=== PATIENT | male | born 1980 | race Caucasian/White ===

== ENCOUNTER 2017-07-16 21:37 | Emergency (ER) | payer BC, OTHER ==
[2017-07-16 21:42] VITALS: BP 134/100; PULSE 89; TEMP 97.3; BMI 33.2
--- NOTE | 2017-07-16 21:52 | PDOC ---
History of Present Illness - History of Present Illness Initial Comments: 07/16/17 21:57 The patient is a year old male, with no significant past medical history, who presents to the emergency department with pain to his right lateral foot/ankle. 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 He reports experiencing pain immediately, but reportedly has been ambulatory without much pain exacerbation since. He denies swelling. He denies chest pain, shortness of breath, headache and dizziness. He denies fever, chills, nausea, vomit, diarrhea and constipation. He denies dysuria, frequency, urgency and hematuria. Adult PAST MEDICAL HISTORY: no significant history PAST SURGICAL HISTORY: no significant history FAMILY HISTORY: no pertinent history SOCIAL HISTORY: Pt lives with family and is employed. MEDICATIONS: reviewed ALLERGIES: As per nursing notes Adult ROS General: No fevers or chills, no weakness, no weight loss HEENT: No change in vision. No sore throat,. No ear pain CardioVascular: No chest pain or shortness of breath Respiratory:No cough, or wheezing. Gastrointestinal: no nausea, vomiting, diarrhea or constipation, No rectal bleeding Genitourinary: No dysuria, hematuria, or frequency Musculoskeletal: (+) right ankle pain. No muscle pain or swelling Neurologic: No headache, vertigo, dizziness or loss of consciousness Psychiatric: nor depression Skin: No rashes or easy bruising Endocrine: no increased thirst or abnormal weight change Allergic: no skin or latex allergy All other systems reviewed and normal Physical Exam GENERAL: The patient is awake, alert, and fully oriented, in no acute distress. HEAD: Normal with no signs of trauma. EYES: Pupils equal, round and reactive to light, extraocular movements intact, sclera anicteric, conjunctiva clear. EXTREMITIES: (+) RLE: No bony tenderness or deformities, Mild tenderness of soft tissues just over the right anterior talofibular ligament. Normal range of motion, no edema, no ecchymosis. NEUROLOGICAL: Normal speech, normal gait. PSYCH: Normal mood, normal affect. SKIN: Warm, Dry, normal turgor, no rashes or lesions noted. <Joslyn Redd - Last Filed: 07/16/17 21:57> - General History Source: Patient Exam Limitations: No Limitations - History of Present Illness Initial Comments: A portion of this note was documented by scribe services under my direction. I have reviewed the details of the note, within reason, and agree with the documentation. The case summary and management plan written by me. 07/16/17 22:12 Assessment and plan: This is a 37-year-old male who comes in complaining of right ankle pain. 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 Patient on exam had no bony tenderness but there was tenderness of the anterior talofibular ligament. Patient given Andre wrap and anti-inflammatories. Patient given a note for no work tomorrow and discharged home. <Gallo Archer I - Last Filed: 07/16/17 22:13> - General Chief Complaint: Injury Stated Complaint: R ANKLE PAIN Time Seen by Provider: 07/16/17 21:41 Past History <Joslyn Redd - Last Filed: 07/16/17 21:57> - Past Medical History COPD: No - Suicide/Smoking/Psychosocial Hx Smoking Status: No Smoking History: Never smoked Have you smoked in the past 12 months: No Number of Cigarettes Smoked Daily: 0 Information on smoking cessation initiated: No Hx Alcohol Use: No Drug/Substance Use Hx: No Substance Use Type: None <Gallo Archer I - Last Filed: 07/16/17 22:13> - Past Medical History Allergies/Adverse Reactions: Allergies Allergy/AdvReac Type Severity Reaction Status Date / Time No Known Allergies Allergy Verified 11/30/15 10:13 Home Medications: Ambulatory Orders NK [No Known Home Medication] 07/16/17 *Physical Exam - Vital Signs Last Vital Signs Temp Pulse Resp BP Pulse Ox 97.3 F L 89 14 134/100 100 07/16/17 21:40 07/16/17 21:40 07/16/17 21:40 07/16/17 21:40 07/16/17 21:40 <Joslyn Redd - Last Filed: 07/16/17 21:57> - Vital Signs Last Vital Signs Temp Pulse Resp BP Pulse Ox 97.3 F L 89 14 134/100 100 07/16/17 21:40 07/16/17 21:40 07/16/17 21:40 07/16/17 21:40 07/16/17 21:40 <Gallo Archer I - Last Filed: 07/16/17 22:13> ED Treatment Course - Medications Given in the ED: ED Medications Discontinued Medications Generic Name Dose Route Start Last Admin Trade Name Nnaci PRMelo Reason Stop Dose Admin Ibuprofen 600 mg 07/16/17 21:53 07/16/17 21:54 Motrin - PO 07/16/17 21:54 600 mg ONCE ONE Administration <Joslyn Redd - Last Filed: 07/16/17 21:57> *DC/Admit/Observation/Transfer - Attestations Scribe Attestion: 07/16/17 21:58 Documentation prepared by Joslyn Redd, acting as senior medical writer for Gallo Archer MD <Joslyn Redd - Last Filed: 07/16/17 21:57> - Discharge Dispostion Admit: No <Gallo Archer I - Last Filed: 07/16/17 22:13> Diagnosis at time of Disposition: Right ankle sprain Qualifiers: Encounter type: initial encounter Involved ligament of ankle: anterior talofibular ligament Qualified Code(s): S93.491A - Sprain of other ligament of right ankle, initial encounter - Discharge Dispostion Disposition: HOME Condition at time of disposition: Good - Referrals Referrals: Jaylen Liu MD [Primary Care Provider] - - Patient Instructions Additional Instructions: Wear the Andre wrap for the next 3-4 days for additional support especially when you're working. Tylenol or Motrin as needed for the pain take as directed on the bottle. Return to the emergency department immediately with ANY new, persistent or worsening symptoms. Continue any medications as previously prescribed by your physician. You should follow up with your primary doctor as soon as possible regarding today's emergency department visit. . Please make sure your doctor reviews the results of your emergency evaluation. Thank you for coming to the Emergency Department today for your care. It was a pleasure to see you today. Please note that your evaluation is INCOMPLETE until you follow-up with your doctor. - Post Discharge Activity Forms/Work/School Notes: Back to Work
[2017-07-16] MEDS ORDERED: IBUPROFEN 600 MG TABLET (FP) PO ONE ×2 (21:53→21:55)
== END 2017-07-16 21:59 | disposition home or self-care (01) ==
LOC: FER 21:37
DX: S93.491A Sprain of other ligament of right ankle, initial encounter (principal); V89.9XXA Person injured in unspecified vehicle accident, initial encounter; Y93.89 Activity, other specified; Y92.9 Unspecified place or not applicable; Y99.0 Civilian activity done for income or pay
CPT/HCPCS: 99282-25

== ENCOUNTER 2017-10-26 03:13 | Emergency (ER) | payer BC, OTHER ==
[2017-10-26 03:26] VITALS: BP 137/83; PULSE 92; TEMP 98.6; BMI 33.9
--- NOTE | 2017-10-28 10:39 | EKG ---
Test Reason : Blood Pressure : / mmHG Vent. Rate : 078 BPM Atrial Rate : 078 BPM P-R Int : 150 ms QRS Dur : 098 ms QT Int : 406 ms P-R-T Axes : 052 073 048 degrees QTc Int : 462 ms NORMAL SINUS RHYTHM SEPTAL INFARCT , AGE UNDETERMINED ABNORMAL ECG WHEN COMPARED WITH ECG OF 26-OCT-2017 03:21, NO SIGNIFICANT CHANGE WAS FOUND Confirmed by MD Gilles, Dino ([id number]) on 10/28/2017 10:39:28 AM Referred By: MD GRIFFITH Confirmed By:Dino Campoverde MD
== END 2017-10-26 07:36 | disposition left against medical advice (07) ==
LOC: JER 03:13
DX: Z53.21 Procedure and treatment not carried out due to patient leaving prior to being seen by health care provider (principal)
CPT/HCPCS: 93005; 93010; 99281-25

== ENCOUNTER 2017-10-26 06:05 | Emergency (ER) | payer BC ==
[2017-10-26 06:24] VITALS: TEMP 98.5; BMI 33.9
--- NOTE | 2017-10-26 06:37 | PDOC ---
History of Present Illness - General History Source: Patient Exam Limitations: No Limitations - General Chief Complaint: Chest Pain Stated Complaint: CHEST PAIN - History of Present Illness Initial Comments: 10/26/17 06:38 This is a 37-year-old male who comes in complaining of chest pain. Patient denies any history of hypertension high cholesterol, diabetes, coronary artery disease. Patient denies any family history of coronary artery disease. Patient currently woke up approximately 1:30 this morning with some chest discomfort went to another hospital sat there for 3 hours was not seen and so came here for evaluation. Patient said that symptoms lasted approximately one hour. There was no associated shortness of breath, diaphoresis, nausea. There was some radiation down the outside of his left arm. PAST MEDICAL HISTORY: no significant history PAST SURGICAL HISTORY: no significant history FAMILY HISTORY: no pertinant history SOCIAL HISTORY: Pt lives with family and is employed. MEDICATIONS: reviewed ALLERGIES: As per nursing notes Review of Systems General: No fevers or chills, no weakness, no weight loss HEENT: No change in vision. No sore throat,. No ear pain CardioVascular: + chest pain, no shortness of breath Respiratory:No cough, or wheezing. Gastrointestinal: no nausea, vomitting, diarrhea or constipation, No rectal bleeding Genitourinary: No dysuria, hematuria, or frequency Musculoskeletal: No joint or muscle pain or swelling Neurologic: No headache, vertigo, dizziness or loss of consciousness Psychiatric: nor depression Skin: No rashes or easy bruising Endocrine: no increased thirst or abnormal weight change Allergic: no skin or latex allergy All other systems reviewed and normal Exam: General: Well-nourished well-developed individual, no acute distress HEENT: Throat: Normal, tonsils normal, no erythema or exudate Neck: Supple, no meningeal signs, no lymphadenopathy Eyes::Pupils equal reactive and round, extraocular motion intact Chest: Nontender to palpation Cardiac: S1-S2 normal, regular rate and rhythm, no murmurs rubs or gallops Respiratory: Lungs clear to auscultation bilateral Abdomen: Soft, nondistended, normal bowel sounds, nontender to palpation diffusely Extremities: Warm, dry, no cyanosis, clubbing, or edema Skin: No rashes Neuro: Alert and oriented x3, CN II - XII intact, nonfocal exam with normal strength, normal sensation, normal reflexes, normal gait, Psych: Normal mood and affect Assessment and plan: This is a 37-year-old male who comes in complaining of having woken up with a discomfort in his chest with some radiation to his left arm. Patient has no risk factors and his heart score is 0. Patient's cardiogram was normal with no acute ST-T wave changes Patient's discomfort and resolved by the time he got to the emergency department. Cardiac enzymes were sent (Gallo Archer I) Past History - Past Medical History COPD: No Other medical history: CHRONIC BACK/ARM PAIN - Suicide/Smoking/Psychosocial Hx Smoking Status: No Smoking History: Never smoked Have you smoked in the past 12 months: No Number of Cigarettes Smoked Daily: 0 Information on smoking cessation initiated: Yes Hx Alcohol Use: No Drug/Substance Use Hx: No Substance Use Type: None - Past Medical History Allergies/Adverse Reactions: Allergies Allergy/AdvReac Type Severity Reaction Status Date / Time No Known Allergies Allergy Verified 10/26/17 03:26 Home Medications: Ambulatory Orders Oxycodone HCl [Oxycodone HCl ER] 30 mg PO BID PRN 10/26/17 - Vital Signs Last Vital Signs Temp Pulse Resp BP Pulse Ox 98.5 F 80 16 148/99 100 10/26/17 06:19 10/26/17 06:19 10/26/17 06:19 10/26/17 06:19 10/26/17 06:19 Heart Score/ECG Review - History History: Slightly suspicious - Electrocardiogram EKG: Normal - Age Age: </= 45 - Risk Factors Based on the list above the patient has:: No risk factors known - Troponin Troponin: </= normal limit - Score Heart Score - Total: 0 - ADDITIONAL ORDERS Additional order review: Laboratory Results 10/26/17 10/26/17 06:43 06:43 Creatine Kinase 99 Troponin I < 0.03 Medical Decision Making - Medical Decision Making 10/26/17 08:47 pt sigend out to me, woek up with chest tightness at around 1:30 associated wit somet ingling in his L arm. pain resolved after a few minutes. he has no risk factors. 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 pt currently asymptomatic ekg is wnl trop neg (Angie,Myron) *DC/Admit/Observation/Transfer - Discharge Dispostion Admit: No Diagnosis at time of Disposition: Atypical chest pain - Discharge Dispostion Disposition: HOME Condition at time of disposition: Stable - Referrals Referrals: Jaylen Liu MD [Primary Care Provider] - - Patient Instructions Additional Instructions: Return to the emergency department immediately with ANY new, persistent or worsening symptoms. Continue any medications as previously prescribed by your physician. You should follow up with your primary doctor as soon as possible regarding today's emergency department visit. . Please make sure your doctor reviews the results of your emergency evaluation. Thank you for coming to the Emergency Department today for your care. It was a pleasure to see you today. Please note that your evaluation is INCOMPLETE until you follow-up with your doctor. - Post Discharge Activity Forms/Work/School Notes: Back to Work
[2017-10-26 09:26] VITALS: BP 136/90; PULSE 78
--- NOTE | 2017-10-26 14:47 | EKG ---
Test Reason : Blood Pressure : / mmHG Vent. Rate : 093 BPM Atrial Rate : 093 BPM P-R Int : 146 ms QRS Dur : 098 ms QT Int : 378 ms P-R-T Axes : 061 073 046 degrees QTc Int : 469 ms NORMAL SINUS RHYTHM NORMAL ECG NO PREVIOUS ECGS AVAILABLE Confirmed by SHAYNE LAUREANO, RASHMI ([id number]) on 10/26/2017 2:46:55 PM Referred By: Confirmed By:RASHMI BELLA MD
== END 2017-10-26 09:23 | disposition home or self-care (01) ==
LOC: FER 06:05
DX: R07.89 Other chest pain (principal)
CPT/HCPCS: 36415; 82550; 84484; 93005; 99282-25

== ENCOUNTER 2018-05-11 12:39 | Emergency (ER) | payer BC ==
--- NOTE | 2018-05-11 13:02 | PDOC ---
History of Present Illness - General Chief Complaint: Head/Neck problem Stated Complaint: RIGHT FACE, NECK, ARM NUMBNESS Time Seen by Provider: 05/11/18 12:47 History Source: Patient Exam Limitations: No Limitations - History of Present Illness Initial Comments: 38 yo M history chronic low back pain presents with R arm tingling for the past 3 days. He states that initially he thought he slept on it wrong, however, it did not return to normal sensation. Denies weakness. No recent injuries. No recent changes in vision, strength. No headaches. He feels the numbness going to the back of his head on the R side as well. Past History - Past Medical History Allergies/Adverse Reactions: Allergies Allergy/AdvReac Type Severity Reaction Status Date / Time No Known Allergies Allergy Verified 05/11/18 12:41 Home Medications: Ambulatory Orders Oxycodone HCl [Oxycodone HCl ER] 30 mg PO BID PRN 10/26/17 COPD: No - Suicide/Smoking/Psychosocial Hx Smoking Status: No Smoking History: Never smoked Have you smoked in the past 12 months: No Number of Cigarettes Smoked Daily: 0 Hx Alcohol Use: No Drug/Substance Use Hx: No Substance Use Type: None Review of Systems - Review of Systems Able to Perform ROS?: Yes Comments:: GENERAL/CONSTITUTIONAL: No fever or chills. No weakness. HEAD, EYES, EARS, NOSE AND THROAT: No change in vision. No ear pain or discharge. No sore throat. CARDIOVASCULAR: No chest pain or shortness of breath. RESPIRATORY: No cough, wheezing, or hemoptysis. GASTROINTESTINAL: No nausea, vomiting, diarrhea or constipation. GENITOURINARY: No dysuria, frequency, or change in urination. MUSCULOSKELETAL: No joint or muscle swelling or pain. No neck or back pain. SKIN: No rash NEUROLOGIC: No headache, vertigo, loss of consciousness, or change in strength. +Dec sensation R arm extending to neck. ENDOCRINE: No increased thirst. No abnormal weight change. HEMATOLOGIC/LYMPHATIC: No anemia, easy bleeding, or history of blood clots. ALLERGIC/IMMUNOLOGIC: No hives or skin allergy. *Physical Exam - Physical Exam Comments: GENERAL: Awake, alert, and fully oriented, in no acute distress HEAD: No signs of trauma EYES: PERRLA, EOMI, sclera anicteric, conjunctiva clear ENT: Auricles normal inspection, hearing grossly normal, nares patent, oropharynx clear without exudates. Moist mucosa NECK: Normal ROM, supple, no lymphadenopathy, JVD, or masses LUNGS: Breath sounds equal, clear to auscultation bilaterally. No wheezes, and no crackles HEART: Regular rate and rhythm, normal S1 and S2, no murmurs, rubs or gallops ABDOMEN: Soft, nontender, normoactive bowel sounds. No guarding, no rebound. No masses EXTREMITIES: Normal range of motion, no edema. No clubbing or cyanosis. No cords, erythema, or tenderness NEUROLOGICAL: Cranial nerves II through XII grossly intact. Normal speech, normal gait. Strength 5/5 throughout. Sensation to pinprick decreased in portions of the RUE. SKIN: Warm, Dry, normal turgor, no rashes or lesions noted. ED Treatment Course - LABORATORY CBC & Chemistry Diagram: 05/11/18 13:38 05/11/18 13:38 Medical Decision Making - Medical Decision Making 05/11/18 13:38 Pt with new onset dec sensation to R arm, has happened once before but that time it resolved. Unclear if this is related to disc disease in the neck or if it is possibly MS. Will obtain CTH and c-spine. 05/11/18 15:48 CT reviewed with patient. Paging Dr. Lopez to discuss recommendations. 05/11/18 16:05 Case d/w Dr. Lopez via phone. The lesions described in the CTH are rather nonspecific and may not correlate with patient's symptoms, as the lesions are bilateral and his symptoms are in the R arm. Will need outpatient MRI. Dr. Lopez's office will contact patient to arrange outpatient f/u this week. *DC/Admit/Observation/Transfer Diagnosis at time of Disposition: Numbness and tingling of right arm - Discharge Dispostion Disposition: HOME Condition at time of disposition: Stable Decision to Admit order: No - Referrals Referrals: Aleksandr Lopez MD [Staff Physician] - - Patient Instructions Printed Discharge Instructions: DI for Numbness/tingling - Post Discharge Activity Forms/Work/School Notes: Back to Work
[2018-05-11 13:15] VITALS: BP 144/88; PULSE 90; TEMP 98.6; BMI 34.0
[2018-05-11 14:13] LABS: BASO % 0.3 % (0-2.0); EOS % 3.4 % (0-4.5); HEMOGLOBIN 15.2 GM/dl (11.7-16.9); LYMPH % 21.3 % (8-40); MCH 28.1 pg (25.7-33.7); MCHC 33.7 g/dl (32.0-35.9); MEAN CELL VOLUME 83.3 fl (80-96); MEAN PLT VOLUME 8.3 fl (7.5-11.1); MONO % 5.8 % (3.8-10.2); NEUT % 69.2 % (42.8-82.8); PLATELET COUNT 225 K/MM3 (134-434); RDW 12.1 % (11.9-15.9); WHITE BLOOD COUNT 5.7 K/mm3 (4.0-10.8)
[2018-05-11 14:22] LABS: ALBUMIN 4.6 g/dl (3.5-5.0); ALK PHOS 56 U/L (32-92); ANION GAP 9 MMOL/L (8-16); BILIRUBIN,TOTAL 0.4 mg/dl (0.2-1.0); BLOOD UREA NITROGEN 12 mg/dl (7-18); CALCIUM 9.5 mg/dl (8.4-10.2); CHLORIDE 102 mmol/L (98-107); CO2 25 mmol/L (22-28); CREATININE 1.1 mg/dl (0.6-1.3); GLUCOSE,RANDOM 113 mg/dl (74-106); POTASSIUM 4.3 mmol/L (3.5-5.1); SGOT/AST 33 U/L (10-42); SGPT/ALT 44 U/L (10-40); SODIUM 136 mmol/L (136-145); TOT PROT 7.8 g/dl (6.4-8.3)
--- NOTE | 2018-05-12 12:58 | EKG ---
Test Reason : Blood Pressure : / mmHG Vent. Rate : 082 BPM Atrial Rate : 082 BPM P-R Int : 150 ms QRS Dur : 098 ms QT Int : 400 ms P-R-T Axes : 051 049 038 degrees QTc Int : 467 ms NORMAL SINUS RHYTHM NORMAL ECG Confirmed by MD BLAISE, ROSEANNA ([id number]) on 05/12/2018 12:58:12 PM Referred By: [facility] Confirmed By:ROSEANNA WELSH MD
== END 2018-05-11 16:14 | disposition home or self-care (01) ==
LOC: FER 12:39
DX: R20.2 Paresthesia of skin (principal); R20.0 Anesthesia of skin
CPT/HCPCS: 36415; 70450-TC; 72125-TC; 80053; 82607; 85025; 93005; 99283-25

== ENCOUNTER 2019-02-28 02:34 | Emergency (ER) | payer OTHER, BC ==
[2019-02-28 03:06] VITALS: BP 136/94; PULSE 92; TEMP 98.5; BMI 33.9
--- NOTE | 2019-02-28 04:05 | PDOC ---
History of Present Illness - General Chief Complaint: Back Pain Stated Complaint: BACK INJURY Time Seen by Provider: 02/28/19 04:04 Past History - Past Medical History Allergies/Adverse Reactions: Allergies Allergy/AdvReac Type Severity Reaction Status Date / Time No Known Allergies Allergy Verified 02/28/19 02:57 Home Medications: Ambulatory Orders Oxycodone HCl [Oxycodone HCl ER] 30 mg PO BID PRN 10/26/17 Ibuprofen [Motrin -] 600 mg PO TID PRN #90 tablet 02/28/19 COPD: No - Suicide/Smoking/Psychosocial Hx Smoking Status: No Smoking History: Never smoked Have you smoked in the past 12 months: No Number of Cigarettes Smoked Daily: 0 Information on smoking cessation initiated: No Hx Alcohol Use: Yes Drug/Substance Use Hx: No Substance Use Type: None *Physical Exam - Vital Signs Last Vital Signs Temp Pulse Resp BP Pulse Ox 98.5 F 92 H 20 136/94 99 02/28/19 03:05 02/28/19 03:05 02/28/19 03:05 02/28/19 03:05 02/28/19 03:05 Medical Decision Making - Medical Decision Making 02/28/19 04:30 I signed up for the patient at 4:05am, the patient was not in the room and could not be found. 25 minutes later, he is still not in the room. Patient eloped. *DC/Admit/Observation/Transfer Diagnosis at time of Disposition: Back ache - Discharge Dispostion Disposition: ELOPED - Referrals Referrals: Jaylen Liu MD [Primary Care Provider] - - Patient Instructions - Post Discharge Activity
--- NOTE | 2019-02-28 04:24 | PDOC ---
Attending Attestation - Resident Resident Name: Toribio Mcguire - ED Attending Attestation I have performed the following: Exceptions are as noted - HPI HPI: 02/28/19 04:30 Resident never saw patient and I didn't either. Pt was in and out of his room. - Physicial Exam PE: 02/28/19 04:31 eloped - Medical Decision Making 02/28/19 04:31 eloped
== END 2019-02-28 04:31 | disposition left against medical advice (07) ==
LOC: JER 02:34
DX: M54.9 Dorsalgia, unspecified (principal)
CPT/HCPCS: 99281-25

== ENCOUNTER 2019-02-28 04:10 | Emergency (ER) | payer BC, OTHER ==
[2019-02-28 04:22] VITALS: BP 132/88; PULSE 90; TEMP 98.4; BMI 33.9
[2019-02-28] MEDS ORDERED: IBUPROFEN 600 MG TABLET (FP) PO ONE ×2 (04:34→04:39)
--- NOTE | 2019-02-28 04:39 | PDOC ---
History of Present Illness - General Chief Complaint: Back Pain Stated Complaint: BACK PAIN History Source: Patient Exam Limitations: No Limitations - History of Present Illness Initial Comments: 02/28/19 04:33 38 yo M h/o MS here with c/o low back pain. 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 today felt tightness n lower back. was unabel to sleep due to pain. denies f/c no new weaknes numbness or tingling. pain is low back midline. worse wth walking standing and going from sitting to standing. did not take anything prior to coming for the pain. see nuerologist dr olivarez, but would like a referral to new nuerologist. no bowel or bladder incontinence. no radiation of the pain. no urinary complaints. Past History - Past Medical History Allergies/Adverse Reactions: Allergies Allergy/AdvReac Type Severity Reaction Status Date / Time No Known Allergies Allergy Verified 02/28/19 02:57 Home Medications: Ambulatory Orders Oxycodone HCl [Oxycodone HCl ER] 30 mg PO BID PRN 10/26/17 Ibuprofen [Motrin -] 600 mg PO TID PRN #90 tablet 02/28/19 COPD: No - Suicide/Smoking/Psychosocial Hx Smoking Status: No Smoking History: Never smoked Have you smoked in the past 12 months: No Number of Cigarettes Smoked Daily: 0 Hx Alcohol Use: Yes Drug/Substance Use Hx: No Substance Use Type: None Review of Systems - Review of Systems Constitutional: No: Chills, Diaphoresis, Fever HEENTM: No: Eye Pain, Blurred Vision Respiratory: No: Cough, Orthopnea, Shortness of Breath Cardiac (ROS): No: Chest Pain Musculoskeletal: Yes: Back Pain All Other Systems: Reviewed and Negative *Physical Exam - Vital Signs Last Vital Signs Temp Pulse Resp BP Pulse Ox 98.4 F 90 16 132/88 99 02/28/19 04:18 02/28/19 04:18 02/28/19 04:18 02/28/19 04:18 02/28/19 04:18 - Physical Exam Comments: 02/28/19 04:35 awake alert lungs clear bilat heart rrr no mrg abd osft nt nd ext wwp no edema. no calf tendernsss no midline spinal tenderness. paraspinal spasm and pain at lombar region. 5/5 lower ext strength. sensation intact bilat lower ext. alert oriented x 3. skin warm and dry no rash. Medical Decision Making - Medical Decision Making 02/28/19 04:36 38 yo male h/o ms here with low back pain/ strain normal nueroloical exam. plan nsaids, fu outpt nuerology. *DC/Admit/Observation/Transfer Diagnosis at time of Disposition: Back ache - Discharge Dispostion Disposition: HOME Condition at time of disposition: Improved Decision to Admit order: No - Prescriptions Prescriptions: Ibuprofen [Motrin -] 600 mg PO TID PRN #90 tablet PRN Reason: Pain - Referrals Referrals: Jaylen Liu MD [Primary Care Provider] - - Patient Instructions Additional Instructions: you can take ibuprofen 60 mg every 8 hrs as needed for pain. follow up [facility] dr Montero. or your nuerologist. you can also follow up with nuerologist dr mancini see referral information call to schedule. return for any new numbness or weakness, bowel or bladder incontinence or any concerns. for your pain you can take ibuprofen 600 mg every 8 hr as needed. take with food. - Post Discharge Activity
== END 2019-02-28 04:43 | disposition home or self-care (01) ==
LOC: FER 04:10
DX: X58.XXXA Exposure to other specified factors, initial encounter (principal); Y93.89 Activity, other specified; Y92.89 Other specified places as the place of occurrence of the external cause; Y99.0 Civilian activity done for income or pay; M54.9 Dorsalgia, unspecified
CPT/HCPCS: 99282-25

== ENCOUNTER 2019-03-29 14:50 | Emergency (ER) | payer BC ==
--- NOTE | 2019-03-29 14:54 | PDOC ---
History of Present Illness - General Chief Complaint: Bite Stated Complaint: BEE STINGS Time Seen by Provider: 03/29/19 14:53 History Source: Patient Exam Limitations: No Limitations - History of Present Illness Initial Comments: 03/29/19 15:22 Tiago Wright is a 39yM w PMHx multiple sclerosis presenting w bee stings. Stung multiple times on working outside today w subsequent pain. Stung L ear, L backx2 , R shoulder, R arm. Associated L ear tinnitus. Denies trouble breathing/ swallowing, hives. Denies fever, nausea/vomiting, chest/AB pain, urinary/bowel mvmt changes. Also complains of new onset L eye blurry vision. Woke up with sudden onset 3d ago, better vision upper>lower half of visual field. Denies flashes, floaters, pain. Diagnosed w multiple sclerosis last year, has not taken prescribed teriflunomide MS med for past month d/t pharmacy not stocked. Past History - Past Medical History Allergies/Adverse Reactions: Allergies Allergy/AdvReac Type Severity Reaction Status Date / Time No Known Allergies Allergy Verified 03/29/19 14:52 Home Medications: Ambulatory Orders NK [No Known Home Medication] 03/29/19 COPD: No - Suicide/Smoking/Psychosocial Hx Smoking Status: No Smoking History: Never smoked Have you smoked in the past 12 months: No Number of Cigarettes Smoked Daily: 0 Hx Alcohol Use: Yes Drug/Substance Use Hx: No Substance Use Type: None Review of Systems - Review of Systems Constitutional: No: Chills, Fever, Malaise HEENTM: Yes: Recent change in vision, Tinnitus (L ear). No: Eye Pain, Nose Pain , Nose Bleeding, Throat Pain, Mouth Pain Respiratory: No: Cough, Orthopnea, Shortness of Breath Cardiac (ROS): No: Chest Pain, Edema, Lightheadedness, Palpitations ABD/GI: No: Abdominal Distended, Constipated, Diarrhea, Nausea, Vomiting : No: Burning, Dysuria, Discharge, Frequency, Flank Pain, Hematuria Musculoskeletal: No: Back Pain, Joint Pain, Joint Swelling, Muscle Pain Integumentary: Yes: Erythema (erythematous patches L ear, R shoulder, R arm, L back x2). No: Lumps, Pruritus, Rash Neurological: No: Headache, Seizure, Tingling, Tremors Psychiatric: No: Anxiety, Depression Endocrine: No: Excessive Sweating, Flushing, Intolerance to Cold, Intolerance to Heat Hematologic/Lymphatic: No: Anemia, Blood Clots, Easy Bleeding *Physical Exam - Physical Exam General Appearance: Yes: Nourished, Appropriately Dressed. No: Apparent Distress HEENT: positive: EOMI, ZEESHAN, Normal Voice, Hearing Grossly Normal. negative: Scleral Icterus (R), Scleral Icterus (L), Nasal Congestion, Rhinorrhea Respiratory/Chest: positive: Lungs Clear, Normal Breath Sounds. negative: Chest Tender, Respiratory Distress, Crackles, Rales, Rhonchi, Stridor, Wheezing Cardiovascular: positive: Regular Rhythm, Regular Rate, S1, S2. negative: Edema , Murmur Extremity: positive: Normal Capillary Refill Integumentary: positive: Normal Color, Rash (erythematous patches L ear, R shoulder, R arm, L back x2). 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 negative: Numbness, Confused, Disoriented Medical Decision Making - Medical Decision Making 03/29/19 15:28 Eye exam 20/40 L eye, 20/25 R eye. Eye ultrasound showed normal retina, no retinal detachment, normal/equal optic nerve size Tiago Wright is a 39yM w PMHx multiple sclerosis presenting w bee stings. Airway patent, breathing normally on room air. Eye exam showed 20/40 L eye, 20/ 25 R eye. Eye ultrasound showed normal retina, no retinal detachment, normal/ equal optic nerve size. Called Dr Hickey neurologist regarding vision change, told that pt has poor medication compliance, advised for pt to see tomorrow for further evaluation and management (steroids, MRI). D/c home w instructions to see Dr. Akers tomorrow. *DC/Admit/Observation/Transfer Diagnosis at time of Disposition: Blurry vision, left eye Bee sting Qualifiers: Encounter type: initial encounter Injury intent: accidental or unintentional Qualified Code(s): T63.441A - Toxic effect of venom of bees, accidental ( unintentional), initial encounter - Discharge Dispostion Disposition: HOME Condition at time of disposition: Good Decision to Admit order: No - Referrals Referrals: Jaylen Liu MD [Primary Care Provider] - Michelle Velazquez MD [Staff Physician] - - Patient Instructions Printed Discharge Instructions: DI for Multiple Sclerosis, DI for Insect Bites and Stings Additional Instructions: You were seen for bee stings and left eye blurry vision. Your eye imaging did not show anything concerning Please make an appointment with your neurologist Dr. Velazquez to see him tomorrow for further evaluation of your vision change. You can apply hydrocortisone cream if your stings continue to hurt. Take tylenol every 4-6 hours for pain if needed. Come back to the ED if you have loss of vision, worsening ear or eye pain, or loss of hearing. - Post Discharge Activity Forms/Work/School Notes: Back to Work
[2019-03-29 15:12] VITALS: BP 149/96; PULSE 104; TEMP 98; BMI 33.0
--- NOTE | 2019-03-29 15:25 | PDOC ---
Attending Attestation - Resident Resident Name: Boy Lin - ED Attending Attestation I have performed the following: I have examined & evaluated the patient, The case was reviewed & discussed with the resident, I agree w/resident's findings & plan, Exceptions are as noted - HPI HPI: 03/29/19 15:20 39 yo male with h/o MS here wtih c/o multiple bee stings. happened earlier today. was working at a [employer] [place], got into bees nest. sustained 4 - 5 bee stings. no h/o severe allergic sxs. no tongue or lip swelling following. was concerned he needed to have the stingers removed. when to [facility] long wait so came to [facility]. also c/o incidental left eye blurriness he has had for 3 days. has been off his meds for MS for one month because stopped sending them in the mail. see nuerologist dr Akers. no focal weakness. no change to speech. no ther nuerological sxs. - Physicial Exam PE: 03/29/19 15:22 awake alert lungs clear bilat heart rrr no mrg skin warm and dry. few scattered punctate bite salas with localized erythema and swelling no javier or lip swelling. no wheezing. ocular exam. normal fundoscopic, no redenss. visual he in tact. Visual acuity left eye 20/40, right eye 20/25 - Medical Decision Making 03/29/19 15:24 39 yo h/o MS here wtih bee stings, and incidental 3 days left eye blurry vision. plan will d/w pt nuerologist. topical steroid for bees tings. focused ED us ocular performed. no retinal detachment or vitreous changes. bilat optic nerves <5 mm impression: normal ocular ultrasound. 03/29/19 16:12 d/w dr akers. pt will fu tomorrow. they will initiate steroid taper tomorrow and outpt mri.
== END 2019-03-29 16:19 | disposition home or self-care (01) ==
LOC: FER 14:50
DX: T63.441A Toxic effect of venom of bees, accidental (unintentional), initial encounter (principal); H53.8 Other visual disturbances; Y93.89 Activity, other specified; Y92.89 Other specified places as the place of occurrence of the external cause
CPT/HCPCS: 99281-25

== ENCOUNTER 2023-02-10 20:15 | Emergency (ER) | payer OTHER, BC ==
[2023-02-10 20:23] VITALS: BP 163/101; PULSE 88; RESP 18; BMI 33.9
[2023-02-10] MEDS ORDERED: NAPROXEN 500 MG TABLET PO ONE (20:57)
[2023-02-10] MEDS ORDERED: NAPROXEN 500 MG TABLET ONE (20:58)
== END 2023-02-10 21:09 | disposition home or self-care (01) ==
LOC: FER 20:15
DX: S93.402A Sprain of unspecified ligament of left ankle, initial encounter (principal); M25.572 Pain in left ankle and joints of left foot; X50.1XXA Overexertion from prolonged static or awkward postures, initial encounter
CPT/HCPCS: 73610-TC-LT-FY; 73630-TC-LT; 99283-25

== ENCOUNTER 2023-03-12 11:07 | Emergency (ER) | payer BC ==
[2023-03-12 11:20] VITALS: BP 146/103; PULSE 108; RESP 20; TEMP 98.6; BMI 33.9
== END 2023-03-12 13:24 | disposition home or self-care (01) ==
LOC: FER 11:07
DX: R10.9 Unspecified abdominal pain (principal); R11.10 Vomiting, unspecified; N23 Unspecified renal colic
CPT/HCPCS: 74176-TC; 81003; 81015; 87086; 99284-25